=== PATIENT | female | born 1960 | race Caucasian/White ===

== ENCOUNTER 2024-11-26 08:29 | Outpatient (CLI) | payer OTHER ==
[~2024-11-26 08:29] MED LIST: CIPRO500 MG PO; ENDOCET 5/325 T1 TAB PO; NAPROXEN SODIU550 MG PO; PREMARIN0.45 MG PO
== END 2024-11-26 08:33 | disposition home or self-care (01) ==
LOC: RAD 08:29
PROVIDERS: ATTEND Radiology Diagnostic Radiology
DX: S80.911A Unspecified superficial injury of right knee, initial encounter (principal); X58.XXXA Exposure to other specified factors, initial encounter; Y93.9 Activity, unspecified; Y92.9 Unspecified place or not applicable; Y99.9 Unspecified external cause status

== ENCOUNTER 2024-11-29 10:03 | Outpatient (CLI) | payer OTHER | END 2024-11-29 10:20 | disposition home or self-care (01) | LOC: MRI 10:03 | PROVIDERS: ATTEND Physical Medicine & Rehabilitation | DX: M25.561 Pain in right knee (principal) | CPT/HCPCS: 73721 ==

== ENCOUNTER → 2025-02-16 | Outpatient (CLI) | payer OTHER | END | disposition home or self-care (01) | LOC: MRI 07:43 | PROVIDERS: ATTEND Physical Medicine & Rehabilitation | DX: M54.50 Low back pain, unspecified (principal) | CPT/HCPCS: 72148 ==

== ENCOUNTER → 2025-02-25 | Outpatient (CLI) | payer OTHER | END | disposition home or self-care (01) | LOC: RAD 10:30 | DX: M17.0 Bilateral primary osteoarthritis of knee (principal) ==